=== PATIENT | male | born 1980 | race Asian ===

== ENCOUNTER → 2018-01-14 | Outpatient (CLI) | payer OTHER ==
[2018-01-15 11:27] LABS: RUBEOLA (MEASLES) IGG >300.0 AU/mL (Immune >29.9)
[2018-01-17 22:24] LABS: RUBEOLA (MEASLES) IGM <0.80 AU (0.00-0.79)
== END | disposition home or self-care (01) ==
LOC: EMPHLTH 12:54
PROVIDERS: ATTEND Internal Medicine
DX: Z02.1 Encounter for pre-employment examination (principal)
CPT/HCPCS: 86706; 86735; 86762; 86765; 86787